=== PATIENT | male | born 1935 | race Caucasian/White ===

== ENCOUNTER 2021-12-15 14:50 | Inpatient (IN) | payer MEDICARE, OTHER ==
[~2021-12-15] VITALS: Ht 180.3 cm; Wt 87.3 kg
[2021-12-15 15:28] LABS: RED BLOOD COUNT 3.04 M/UL (4.20-5.50); WHITE BLOOD COUNT 5.1 K/UL (4.5-11.0)
[2021-12-16] MEDS ORDERED: ISOSORBIDE MONO60 MG PO (01:59)
[2021-12-16] MEDS ORDERED: DILTIAZEM ER120 M1 PO (02:03)
[2021-12-16] MEDS ORDERED: LEVOCETIRIZINE D5 MG PO (02:05)
[2021-12-16] MEDS ORDERED: DOCUSATE SODIU100 MG PO (02:19)
[2021-12-16] MEDS ORDERED: FERROUS FUMARA324 MG PO (02:21)
[2021-12-16] MEDS ORDERED: ZEBETA 5 MG TAB5 MG PO (02:25)
[2021-12-16] MEDS ORDERED: SINGULAIR10 MG PO (02:27)
[2021-12-16] MEDS ORDERED: CARDURA1 MG PO (02:30)
[2021-12-16] MEDS ORDERED: HYDROCODON-ACE1 EAC6 PO (09:08)
[2021-12-16 09:30] LABS: HEMOGLOBIN 8.8 gm/dl (14.0-17.5); RED BLOOD COUNT 2.98 M/UL (4.20-5.50); WHITE BLOOD COUNT 4.3 K/UL (4.5-11.0)
[2021-12-17 04:03] LABS: HEMOGLOBIN 7.9 gm/dl (14.0-17.5); WHITE BLOOD COUNT 3.5 K/UL (4.5-11.0)
[2021-12-17 04:09] LABS: RED BLOOD COUNT 2.65 M/UL (4.20-5.50)
[2021-12-17] MEDS ORDERED: DOXYCYCLINE HY100 MG PO (14:06)
[2021-12-17] MEDS ORDERED: OMNICEF 300 MG300 MG PO (14:06)
== END 2021-12-17 17:25 | disposition home or self-care (01) | DRG 682 ==
LOC: ER1 14:50 → M/S 19:03 → CDU 19:03 → M/S 22:38
PROVIDERS: Emergency Medicine; Internal Medicine; Internal Medicine Nephrology; ADMIT Internal Medicine
DX: N17.9 Acute kidney failure, unspecified (principal); J18.9 Pneumonia, unspecified organism; J96.11 Chronic respiratory failure with hypoxia; F11.20 Opioid dependence, uncomplicated; D61.818 Other pancytopenia; G89.29 Other chronic pain; N18.30 Chronic kidney disease, stage 3 unspecified; I12.9 Hypertensive chronic kidney disease with stage 1 through stage 4 chronic kidney disease, or unspecified chronic kidney disease; N40.0 Benign prostatic hyperplasia without lower urinary tract symptoms; R00.1 Bradycardia, unspecified; K59.00 Constipation, unspecified; D63.1 Anemia in chronic kidney disease; Z90.89 Acquired absence of other organs; Z82.49 Family history of ischemic heart disease and other diseases of the circulatory system; Z85.46 Personal history of malignant neoplasm of prostate
CPT/HCPCS: 36415; 71046; 80053; 81001; 82272; 82550; 82553; 82570; 82607; 82728; 82746; 83036; 83540; 83550; 83735; 83930; 83970; 84100; 84156; 84300; 84439; 84443; 84484; 85025; 85027; 85045; 86140; 87040; 87081; 93005; 96374; 99285; J0696; J1650; P9047